=== PATIENT | male | born 1995 | race Two or more races ===

== ENCOUNTER 2018-10-30 01:41 | Emergency (ER) | payer SELFPAY ==
[~2018-10-30] VITALS: Ht 182.9 cm; Wt 105.0 kg
--- NOTE | 2018-10-30 02:00 | NUR ---
assessment made. chart up for MD to see.
--- NOTE | 2018-10-30 02:13 | NUR ---
ERP at bedside.
[2018-10-30] MEDS ORDERED: ONDANSETRON 2MG/ML, 2ML ONE (02:23)
--- NOTE | 2018-10-30 02:26 | NUR ---
patient dry heaving. medicated for nausea.
[2018-10-30] MEDS ORDERED: ONDANSETRON 2MG/ML, 2ML IM ONE (02:30)
--- NOTE | 2018-10-30 02:43 | NUR ---
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
[2018-10-30 02:49] LABS: BASOPHILS # (AUTO) 0.01 x10^3/uL (0-0.1); BASOPHILS % (AUTO) 0 % (0-1); EOSINOPHILS % (AUTO) 0 % (1-7); LYMPHOCYTES # (AUTO) 1.29 x10^3/uL (1-3.4); LYMPHOCYTES % (AUTO) 11 % (22-44); MD NO; MEAN CORPUSCULAR HEMOGLOBIN 29.5 pg (27.5-34.5); MEAN CORPUSCULAR HGB CONC 33.3 g/dL (33.2-36.2); MEAN CORPUSCULAR VOLUME 88.6 fL (81-97); MEAN PLATELET VOLUME 10.8 fL (7.4-10.4); MONOCYTES # (AUTO) 0.49 x10^3/uL (0.2-0.8); MONOCYTES % (AUTO) 4 % (2-9); NEUTROPHILS # (AUTO) 9.87 x10^3/uL (1.8-6.8); NEUTROPHILS % (AUTO) 85 % (42-75); PLATELET COUNT 233 x10^3/uL (130-400); RED BLOOD COUNT 5.37 x10^6/uL (4.38-5.82); RED CELL DISTRIBUTION WIDTH 13.2 % (9.4-14.8)
[2018-10-30 03:02] LABS: ANION GAP 12 mmol/L (5-15); CALCIUM 8.6 mg/dL (8.5-10.1); CHLORIDE 107 mmol/L (98-107); CREATININE 1.07 mg/dL (0.7-1.3)
[2018-10-30 03:03] LABS: ALANINE AMINOTRANSFERASE 94 U/L (12-78); ALBUMIN 3.8 g/dL (3.4-5.0)
[2018-10-30 03:05] LABS: ALKALINE PHOSPHATASE 122 U/L (45-117); BILIRUBIN,TOTAL 0.2 mg/dL (0.2-1.0); TOTAL PROTEIN 7.9 g/dL (6.4-8.2)
--- NOTE | 2018-10-30 03:18 | NUR ---
patient sleeping, respiration unlabored. family at bedside.
--- NOTE | 2018-10-30 04:07 | NUR ---
re-evaluation done by ERP. family will take patient back to hotel. patient able to transfer to wheel chair from [facility]. wheeled to Discharge area with family.
[2018-10-30 04:10] VITALS: BP 118/58
== END 2018-10-30 04:16 | disposition home or self-care (01) ==
LOC: ED 04:00
DX: F10.120 Alcohol abuse with intoxication, uncomplicated (principal); G31.2 Degeneration of nervous system due to alcohol
CPT/HCPCS: 36415; 80053; 80307; 85025; 96372; 99283; J2405